=== PATIENT | female | born 1980 | race Caucasian/White ===

== ENCOUNTER 2018-04-29 20:23 | Emergency (ER) | payer SELFPAY ==
--- NOTE | 2018-04-29 20:38 | EDM.PDOC ---
ED HPI GENERAL MEDICAL PROBLEM - General Chief Complaint: Headache Stated Complaint: MIGRAINE Time Seen by Provider: 04/29/18 20:25 Source of Information: Reports: Patient History Limitations: Reports: No Limitations - History of Present Illness INITIAL COMMENTS - FREE TEXT/NARRATIVE: Patient presents to ER with complaints of a headache that started earlier today. States took her Maxalt and a Tramadol but hasn't gotten relief. Pain is on the left side of her head. Has light and sound sensitivity, nauseated. No vomiting. No numbness, tingling or weakness noted to extremities. History of migraine headaches, states typical symptoms for her. Onset: Today, Sudden Duration: Hour(s):, Constant Location: Reports: Head Quality: Reports: Throbbing Severity: Moderate Improves with: Reports: None Associated Symptoms: Reports: Nausea/Vomiting. Denies: Confusion, Cough, Fever/ Chills, Loss of Appetite, Shortness of Breath, Syncope, Weakness Treatments MEDICAL SALES: Reports: Other Medication(s) Other Treatments MEDICAL SALES: TRAMADOL, MAXALT Headache Pain Score (Numeric/FACES): 6 - Related Data Allergies Allergy/AdvReac Type Severity Reaction Status Date / Time cedarwood Allergy Swelling Verified 04/29/18 20:29 onion Allergy Hives Verified 04/29/18 20:29 pine nut Allergy Swelling Verified 04/29/18 20:29 Home Meds: Home Meds Carisoprodol [Soma] 250 mg PO QID PRN 04/29/18 [History] Diclofenac Potassium [Cambia] 50 mg PO Q4HR PRN 04/29/18 [History] Rizatriptan Benzoate [Rizatriptan] 10 mg PO Q4HR PRN 04/29/18 [History] traMADol HCl [Tramadol HCl] 50 mg PO Q6H PRN 04/29/18 [History] Past Medical History Neurological History: Reports: Migraines Social & Family History - Tobacco Use Smoking Status *Q: Unknown Ever Smoked ED ROS GENERAL - Review of Systems Review Of Systems: See Below Constitutional: Denies: Fever, Chills, Malaise, Weakness HEENT: Reports: Rhinitis. Denies: Ear Pain, Throat Pain, Vision Change Respiratory: Denies: Shortness of Breath, Cough Cardiovascular: Denies: Chest Pain, Edema, Lightheadedness Endocrine: Denies: Fatigue GI/Abdominal: Reports: Nausea. Denies: Abdominal Pain, Vomiting : Reports: No Symptoms Musculoskeletal: Reports: No Symptoms Skin: Reports: No Symptoms Neurological: Reports: Headache. Denies: Numbness, Tingling, Trouble Speaking, Difficulty Walking, Weakness, Change in Speech, Gait Disturbance Psychiatric: Reports: No Symptoms - Physical Exam Exam: See Below Exam Limited By: No Limitations General Appearance: Alert, WD/WN, Mild Distress Eye Exam: Bilateral Eye: Abnormal EOM, PERRL Ears: Normal External Exam, Normal TMs Nose: Normal Inspection, Normal Mucosa, No Blood Throat/Mouth: Normal Inspection, Normal Oropharynx Head Exam: Normocephalic Neck: Normal Inspection, Supple, Non-Tender Respiratory/Chest: No Respiratory Distress, Lungs Clear, Normal Breath Sounds Cardiovascular: Regular Rate, Rhythm GI/Abdominal: Normal Bowel Sounds, Soft, Non-Tender Neuro Exam (Abbreviated): Alert, Oriented, CN II-XII Intact, Normal Cognition, Normal Gait, Normal Reflexes, No Motor/Sensory Deficits Skin Exam: Warm, Dry Course - Vital Signs Last Recorded V/S: Last Vital Signs Temp 97.7 F 04/29/18 20:24 Pulse 108 H 04/29/18 20:24 Resp 18 04/29/18 20:24 BP 163/87 H 04/29/18 20:24 Pulse Ox 99 04/29/18 20:24 - Orders/Labs/Meds Meds: Medications Discontinued Medications Generic Name Dose Route Start Last Admin Trade Name Basilia PRN Reason Stop Dose Admin Ketorolac Tromethamine 60 mg 04/29/18 20:54 04/29/18 21:02 Toradol IM 04/29/18 20:55 60 mg ONETIME ONE Administration Ondansetron HCl 4 mg 04/29/18 20:54 04/29/18 21:02 Zofran IM 04/29/18 20:55 4 mg NOW ONE Administration - Re-Assessments/Exams Free Text/Narrative Re-Assessment/Exam: 04/29 Is feeling somewhat better, pain down to a 4 now. Departure - Departure Time of Disposition: 21:00 Disposition: Home, Self-Care 01 Condition: Good Clinical Impression: Migraine - Discharge Information *PRESCRIPTION DRUG MONITORING PROGRAM REVIEWED*: Not Applicable (patient recently moved here from [place]) *COPY OF PRESCRIPTION DRUG MONITORING REPORT IN PATIENT SABINO: No Referrals: PCP,None [Primary Care Provider] - Forms: ED Department Discharge Additional Instructions: 1. rest 2. Push fluids 3. Usual meds as at home for migraines 4. Follow up with Primary care provider for concerns.
[2018-04-29] MEDS ORDERED: Ketorolac 60 MG/2 ML SDV IM ONE (20:54)
[2018-04-29] MEDS ORDERED: Ondansetron 4 MG/2 ML SDV IM ONE (20:54)
== END 2018-04-29 21:30 | disposition home or self-care (01) ==
LOC: CC.ED 20:23
DX: G43.909 Migraine, unspecified, not intractable, without status migrainosus (principal); Z79.899 Other long term (current) drug therapy
CPT/HCPCS: 96372; 99283; J1885; J2405

== ENCOUNTER 2018-10-24 16:09 | Emergency (ER) | payer BC, OTHER ==
[2018-10-24] MEDS: Sodium Chloride 0.9% 1,000 ML ONE (17:45)
[2018-10-24] MEDS: Sodium Chloride 0.9% 1,000 ML IV ONE (17:52)
[2018-10-24] MEDS: Ketorolac 30 MG/ML SDV IM ONE (17:53)
[2018-10-24] MEDS: diphenhydrAMINE 50 MG/ML SDV IM ONE (17:53)
--- NOTE | 2018-10-24 19:04 | EDM.PDOC ---
ED HPI GENERAL MEDICAL PROBLEM - General Chief Complaint: Headache Stated Complaint: MIGRAINE Time Seen by Provider: 10/24/18 17:00 Source of Information: Reports: Patient History Limitations: Reports: No Limitations - History of Present Illness INITIAL COMMENTS - FREE TEXT/NARRATIVE: Monica is a 38 yr old female who presents to the ED with concerns of a migraine. She states it started yesterday with her typical migraine features. She states she tried taking her triptan last night without any relief so she took a diclofenac as well. She admits her headache was still present this morning and took a Toradol 10mg tablet. Feels it was starting to get better but now it is worse again. States this has happened in the past and came in and got shots, which seemed to alleviate her migraine. Admits to getting "auras" hearing things, n/v, and sensitivity to light. migraine Pain Score (Numeric/FACES): 6 - Related Data Allergies Allergy/AdvReac Type Severity Reaction Status Date / Time cedarwood Allergy Swelling Verified 10/24/18 16:20 onion Allergy Hives Verified 10/24/18 16:20 pine nut Allergy Swelling Verified 10/24/18 16:20 Home Meds: Home Meds Carisoprodol [Soma] 250 mg PO QID PRN 04/29/18 [History] Diclofenac Potassium [Cambia] 50 mg PO Q4HR PRN 04/29/18 [History] Rizatriptan Benzoate [Rizatriptan] 10 mg PO Q4HR PRN 04/29/18 [History] traMADol HCl [Tramadol HCl] 50 mg PO Q6H PRN 04/29/18 [History] Ketorolac [Toradol] 10 mg PO Q6H PRN 10/24/18 [History] Past Medical History 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: Reports: Polycystic Ovaries Neurological History: Reports: Migraines - Past Surgical History Female Surgical History: Reports: Section Musculoskeletal Surgical History: Reports: Other (See Below) Other Musculoskeletal Surgeries/Procedures:: HX OF BROKEN R FOOT Social & Family History - Family History Family Medical History: Noncontributory - Tobacco Use Smoking Status *Q: Current Every Day Smoker Years of Tobacco use: 25 Packs/Tins Daily: 0.5 - Recreational Drug Use Recreational Drug Use: No ED ROS GENERAL - Review of Systems Review Of Systems: ROS reveals no pertinent complaints other than HPI. - Physical Exam Exam: See Below Exam Limited By: No Limitations General Appearance: Alert, No Apparent Distress Eye Exam: Bilateral Eye: EOMI, Normal Inspection, PERRL Ears: Normal External Exam, Normal Canal, Hearing Grossly Normal, Normal TMs Nose: Normal Inspection, Normal Mucosa, No Blood Throat/Mouth: Normal Inspection, Normal Lips, Normal Oropharynx, Normal Voice, No Airway Compromise Head Exam: Atraumatic, Normocephalic Neck: Normal Inspection, Supple, Non-Tender Respiratory/Chest: No Respiratory Distress, Lungs Clear, Normal Breath Sounds, No Accessory Muscle Use Cardiovascular: Regular Rate, Rhythm, No Murmur Neuro Exam (Abbreviated): Alert, Oriented, CN II-XII Intact, Normal Cognition, No Motor/Sensory Deficits Extremities: Normal Inspection Psychiatric: Normal Affect, Normal Mood Skin Exam: Warm, Dry, Intact, Normal Color, No Rash Course - Vital Signs Last Recorded V/S: Last Vital Signs Temp 97.5 F 10/24/18 16:17 Pulse 91 10/24/18 16:17 Resp 18 10/24/18 16:17 BP 153/88 H 10/24/18 16:17 Pulse Ox 99 10/24/18 16:17 - Orders/Labs/Meds Meds: Medications Discontinued Medications Generic Name Dose Route Start Last Admin Trade Name Basilia PRDenver Reason Stop Dose Admin Diphenhydramine HCl 25 mg 10/24/18 17:47 10/24/18 17:53 Benadryl IM 10/24/18 17:48 25 mg ONETIME ONE Administration Sodium Chloride Confirm 10/24/18 17:42 10/24/18 17:45 Normal Saline Administered 10/24/18 17:43 Not Given Dose 1,000 mls @ as directed .ROUTE .STK-MED ONE Sodium Chloride 1,000 mls @ 999 mls/hr 10/24/18 17:49 10/24/18 17:52 Normal Saline IV 10/24/18 18:49 999 mls/hr .BOLUS ONE Administration Ketorolac Tromethamine 30 mg 10/24/18 17:47 10/24/18 17:53 Toradol IM 10/24/18 17:48 30 mg ONETIME ONE Administration - Re-Assessments/Exams Free Text/Narrative Re-Assessment/Exam: Monica admitted to being her normal migraine headaches. Elected to send to the floor for 1 Liter of normal saline, 25mg of Benadryl and 30mg of Toradol intravenously. Departure - Departure Time of Disposition: 19:03 Disposition: Home, Self-Care 01 Condition: Good Clinical Impression: Migraine - Discharge Information Instructions: Migraine Headache, [id number] Referrals: PCP,None [Primary Care Provider] - Forms: ED Department Discharge Additional Instructions: 1) Rest 2) Push fluids 3) May go back to taking prescribed medications for migraine. 4) Follow up if any concerns. - Problem List & Annotations (1) Migraine SNOMED Code(s): 18858430 Code(s): G43.909 - MIGRAINE, UNSP, NOT INTRACTABLE, WITHOUT STATUS MIGRAINOSUS Status: Acute - Problem List Review Problem List Initiated/Reviewed/Updated: Yes - Assessment/Plan Plan: After receiving fluids, Monica admitted her headache had significantly improved and was ready to go home. We will discharge at this time in satisfactory condition. See additional instructions.
== END 2018-10-24 19:10 | disposition home or self-care (01) ==
LOC: CC.ED 16:09
DX: G43.909 Migraine, unspecified, not intractable, without status migrainosus (principal); F17.210 Nicotine dependence, cigarettes, uncomplicated; Z91.018 Allergy to other foods
CPT/HCPCS: 96361; 96374; 96375; 99282-25; J1200; J1885; J7030

== ENCOUNTER 2023-05-19 18:58 | Emergency (ER) | payer BC ==
[2023-05-19 19:12] LABS: BASOPHILS ABSOLUTE AUTO 0.04 10^3/uL (0.00-0.50); BASOPHILS PERCENT AUTO 0.3 % (0-1); EOSINOPHILS PERCENT AUTO 0.8 % (0-6); HEMATOCRIT 45.1 % (37.0-47.0); HEMOGLOBIN 15.4 g/dL (12.0-16.0); IMMATURE GRAN ABSOLUTE AUTO 0.01 10^3/uL (0.00-0.49); IMMATURE GRAN PERCENT AUTO 0.1 % (0.0-4.9); LYMPHOCYTES ABSOLUTE AUTO 2.17 10^3/uL (0.60-5.00); LYMPHOCYTES PERCENT AUTO 18.4 % (24-44); MEAN CORPUSCULAR HEMOGLOBIN 30.4 pg (27.0-32.0); MEAN CORPUSCULAR HGB CONC 34.1 g/dL (32.0-36.0); MONOCYTES ABSOLUTE AUTO 0.71 10^3/uL (0.00-1.50); NEUTROPHILS ABSOLUTE AUTO 8.77 x10^3/uL (1.80-8.00); NEUTROPHILS PERCENT AUTO 74.4 % (41-71); PLATELET COUNT,PLT 194 10^3/uL (150-400); RED BLOOD CELL COUNT 5.07 x10^6/uL (4.00-5.50); WHITE BLOOD CELL COUNT,WBC 11.8 10^3/uL (4.0-11.0)
[2023-05-19] MEDS ORDERED: Ketorolac 30 MG/ML SDV IVPUSH ONE (19:15)
[2023-05-19] MEDS ORDERED: Sodium Chloride 0.9% 10 ML Syringe FLUSH PRN (19:15)
[2023-05-19] MEDS ORDERED: Ondansetron 4 MG/2 ML SDV IVPUSH PRN (19:16)
[2023-05-19 19:30] LABS: BILIRUBIN TOTAL 0.7 mg/dL (0.0-1.0); CALCIUM 9.2 mg/dL (8.4-10.1); CREATININE 0.7 mg/dL (0.6-1.0); EST CRCL DRUG DOSING (CG) 76.58 mL/min; PROTEIN TOTAL,TP 7.3 g/dL (6.4-8.2)
[2023-05-19] MEDS ORDERED: Iopamidol 755 Mg/ML 100 ML Bottle IVPUSH ONE (19:31)
[2023-05-19 19:37] LABS: APPEARANCE,URINE TURBID (CLEAR); COLOR,URINE RED (YELLOW); GLUCOSE,URINE NEGATIVE (NEGATIVE); KETONES,URINE TRACE mg/dL (NEGATIVE); LEUKOCYTE ESTERASE,URINE NEGATIVE (NEGATIVE); NITRITE,URINE NEGATIVE (NEGATIVE); OCCULT BLOOD,URINE LARGE (NEGATIVE); PH,URINE 5.5 (4.5-8.0); PROTEIN,URINE 100 mg/dL (NEGATIVE); UROBILINOGEN,URINE 0.2 EU/dL (0.2-1.0)
[2023-05-19 19:43] LABS: BILIRUBIN,URINE SMALL (NEGATIVE)
[2023-05-19 19:44] LABS: BACTERIA,URINE NOT SEEN /HPF (NOT SEEN); RBC,URINE PACKED /HPF (0-5); SQUAMOUS EPITHELIAL CELLS,UR FEW /HPF (NOT SEEN); WBC,URINE 0-5 /HPF (0-5)
[2023-05-19] MEDS ORDERED: Take Home: Ketorolac 10 MG Tab, 4 Tab Pack PO ONE (21:07)
[2023-05-19] MEDS ORDERED: Take Home: Ondansetron 4 MG Tab.DIS, 2 Tab Pack PO ONE (21:08)
== END 2023-05-19 21:30 | disposition home or self-care (01) ==
LOC: CC.ED 18:58
DX: R10.2 Pelvic and perineal pain (principal); F17.210 Nicotine dependence, cigarettes, uncomplicated; Z91.018 Allergy to other foods
CPT/HCPCS: 36415; 74177; 80053; 81001; 81025; 85025; 96374; 96375; 99284; 99284-25; A9270-GY; J1885; J2405; Q9967